=== PATIENT | male | born 1930 | race Caucasian/White ===

== ENCOUNTER 2016-09-04 10:31 | Inpatient (IN) | payer MEDICARE ==
--- NOTE | 2016-09-04 10:58 | Emergency Department Record ---
History of Present Illness - General Chief complaint: Weakness Stated complaint: WEAKNESS/FALL Time Seen by Provider: 09/04/16 10:47 Source: Patient, Family Mode of Arrival: EMS Limitations: No limitations - History of Present Illness Initial comments: pt has fallen twice in last few days. pt c/o back pain. pt is unsure why he fell. he did start a new medication recently MD Complaint: Generalized weakness Onset/Timin -: Days(s) Severity: Mild Severity scale (1-10): 2 Quality: Aching Consistency: Constant Improves with: None Worsens with: None Associated Symptoms: Denies other symptoms - [place] Coma Scale Eye Response: (4) Open spontaneously Motor Response: (6) Obeys commands Verbal Response: (5) Oriented [place] Total: 15 - Symptoms of Stroke Symptoms of stroke: Muscle Weakness - Related Data Home Medications Medication Instructions Recorded Confirmed Last Taken Bupropion HCl [Bupropion HCl] 100 mg PO DAILY 09/04/16 09/04/16 Unknown Sertraline HCl [Zoloft] 50 mg PO DAILY 09/04/16 09/04/16 Unknown Sertraline HCl [Zoloft] 100 mg PO DAILY 09/04/16 09/04/16 Unknown Allergies Allergy/AdvReac Type Severity Reaction Status Date / Time No Known Drug Allergies Allergy Unverified 03/14/16 12:07 Travel Screening - Travel/Exposure Within Last 30 Days Have you traveled within the last 30 days?: No Review of Systems Reviewed: No additional complaints except as noted below Constitutional: Reports: As per HPI. Denies: Chills, Fever, Malaise, Night sweats, Weakness, Weight change Eyes: Reports: As per HPI. Denies: Eye discharge, Eye pain, Photophobia, Vision change ENT: Reports: As per HPI. Denies: Congestion, Dental pain, Ear pain, Epistaxis , Hearing loss, Throat pain Respiratory: Reports: As per HPI. Denies: Cough, Dyspnea, Hemoptysis, Stridor, Wheezes Cardiovascular: Reports: As per HPI. Denies: Arrhythmia, Chest pain, Dyspnea on exertion, Edema, Murmurs, Orthopnea, Palpitations, Paroxysmal nocturnal dyspnea, Rheumatic Fever, Syncope Endocrine: Reports: As per HPI. Denies: Fatigue, Heat or cold intolerance, Polydipsia, Polyuria Gastrointestinal: Reports: As per HPI. Denies: Abdominal pain, Constipation, Diarrhea, Hematemesis, Hematochezia, Melena, Nausea, Vomiting Genitourinary: Reports: As per HPI. Denies: Dysuria, Frequency, Hematuria, Incontinence, Retention, Testicular pain, Testicular mass, Urgency Musculoskeletal: Reports: As per HPI. Denies: Arthralgia, Back pain, Gout, Joint swelling, Myalgia, Neck pain Skin: Reports: As per HPI. Denies: Bruising, Change in color, Change in hair/ nails, Lesions, Pruritus, Rash Neurological: Reports: As per HPI. Denies: Abnormal gait, Confusion, Headache, Numbness, Paresthesias, Seizure, Tingling, Tremors, Vertigo, Weakness Psychiatric: Reports: As per HPI. Denies: Anxiety, Auditory hallucinations, Depression, Homicidal thoughts, Suicidal thoughts, Visual hallucinations Hematological/Lymphatic: Reports: As per HPI. Denies: Anemia, Blood Clots, Easy bleeding, Easy bruising, Swollen glands Past Medical History - SOCIAL HISTORY Smoking Status: Never smoker Alcohol Use: None Drug Use: None - RESPIRATORY Hx Respiratory Disorders: No - CARDIOVASCULAR Hx Cardio Disorders: Yes Hx Hypertension: Yes - NEURO Hx Neuro Disorders: Yes Hx Seizures: Yes - GI Hx GI Disorders: No - Hx Genitourinary Disorders: Yes Hx Bladder Problem: Yes Hx Prostate Problems: Yes Hx Renal Disease: Yes Comment:: Kidney removed, bladder CA - ENDOCRINE Hx Endocrine Disorders: No Hx Diabetes: No Hx Thyroid Disease: No - MUSCULOSKELETAL Hx Musculoskeletal Disorders: Yes Hx Arthritis: Yes - PSYCH Hx Psych Problems: Yes Hx Anxiety: Yes Hx Depression: Yes - HEMATOLOGY/ONCOLOGY Hx Hematology/Oncology Disorders: Yes Hx Cancer: Yes (Bladder) Hx Chemotherapy: Yes Hx Radiation Therapy: No Family Medical History Any Significant Family History?: Yes Hx Cancer: Mother Physical Exam - General General Appearance: Alert, Oriented x3, Cooperative, Mild distress - Head Head exam: Normal inspection - Eye Eye exam: Normal appearance, PERRL, EOMI Pupils: Normal accommodation - ENT ENT exam: Normal exam, Mucous membranes moist, Normal external ear exam, Normal orophraynx, TM's normal bilaterally Ear exam: Normal external inspection. negative: External canal tenderness Nasal Exam: Normal inspection. negative: Discharge, Sinus tenderness Mouth exam: Normal external inspection, Tongue normal Teeth exam: Normal inspection. negative: Dental caries Throat exam: Normal inspection. negative: Tonsillar erythema, Tonsillar exudate - Neck Neck exam: Normal inspection, Full ROM. negative: Tenderness - Respiratory Respiratory exam: Normal lung sounds bilaterally. negative: Respiratory distress - Cardiovascular Cardiovascular Exam: Regular rate, Normal rhythm, Normal heart sounds - GI/Abdominal GI/Abdominal exam: Soft, Normal bowel sounds. negative: Tenderness - Rectal Rectal exam: Deferred - exam: Deferred - Extremities Extremities exam: Normal inspection, Full ROM, Normal capillary refill. negative: Tenderness - Back Back exam: Reports: Paraspinal tenderness, Tenderness. Denies: Normal inspection, Full ROM, Muscle spasm, Rash noted - Neurological Neurological exam: Alert, CN II-XII intact, Normal gait, Oriented X3 - Psychiatric Psychiatric exam: Normal affect, Normal mood - Skin Skin exam: Dry, Intact, Normal color, Warm Course Vital Signs 09/04/16 10:35 Temperature 99.1 F Pulse Rate 88 Respiratory 18 Rate Blood Pressure 144/67 Pulse Ox 96 - Reevaluation(s) Reevaluation #1: 09/04/16 16:23 pt is difficult to get up even w 2 man assist and needs 2 people to hold while walking. fears more falls and fears taking him home. Medical Decision Making - Lab Data Result diagrams: 09/04/16 10:30 09/04/16 10:30 Disposition Disposition: Admit Clinical Impression: Unable to ambulate, Recurrent falls Decision to Admit: Admit from ER Decision to Admit Date: 09/04/16 Decision to Admit Time: 16:27 Forms: Patient Portal Access
[2016-09-04 11:13] LABS: BASO % 0.1 % (0-6); EOS % 2.2 % (0-6); GRAN % 75.1 % (47-80); HEMATOCRIT 37.2 % (42.0-52.0); HEMOGLOBIN 12.2 gm/dl (14.0-18.0); LYMPH % 15.1 % (16-45); MEAN CORPUSCULAR HEMOGLOBIN 29.1 pg (27-33); MEAN CORPUSCULAR HGB CONC 32.8 g/dl (32-36); MEAN PLATELET VOLUME 9.2 fl (7.4-10.4); MONO % 7.5 % (0-9); PLATELET COUNT 283 K/uL (130-400); RED BLOOD COUNT 4.18 M/uL (4.40-5.70); RED CELL DISTRIBUTION WIDTH 15.3 % (11.5-14.5); WHITE BLOOD COUNT W/O DIFF 7.6 K/uL (4.2-12.2)
[2016-09-04 11:25] LABS: ANION GAP 13.5 (7-16); CARBON DIOXIDE 24.5 mmol/L (22-30); CREATININE 1.4 mg/dL (0.66-1.25)
[2016-09-04] MEDS ORDERED: 0.9 % SODIUM CHLORIDE 1,000 ML BAG IV ONE (11:59)
[2016-09-04 14:07] LABS: URINE APPEARANCE CLEAR; URINE BILIRUBIN NEGATIVE (NEGATIVE); URINE BLOOD LARGE (NEGATIVE); URINE COLOR YELLOW; URINE GLUCOSE (UA) NEGATIVE (NEGATIVE); URINE KETONE NEGATIVE (NEGATIVE); URINE LEUKOCYTE ESTERASE NEGATIVE (NEGATIVE); URINE NITRITE NEGATIVE (NEGATIVE); URINE PROTEIN NEGATIVE (NEGATIVE); URINE UROBILINOGEN 0.2 E.U./dL (0.20 - 1.00)
[2016-09-04 14:13] LABS: URINE BACTERIA NONE SEEN; URINE EPITHELIAL CELLS NONE SEEN (FEW)
[2016-09-04] MEDS: ACETAMINOPHEN 500 MG TABLET PO PRN (18:49)
[2016-09-04] MEDS ORDERED: MIDODRINE HCL 10 MG PO SCH (22:00)
--- NOTE | 2016-09-05 08:14 | CT SCAN REPORT ---
EXAM: EMERGENCY HEAD CT WITHOUT CONTRAST HISTORY: UNWITNESSED FALL PER , HAS DEMENTIA, SHAKING. TECHNIQUE: Axial CT scan of the head was performed without IV contrast. Comparison: Head CT 12/23/14. Encounter: Initial. Hand dominance: Right. FINDINGS: No definite acute intracranial hemorrhage is identified. No focal mass effect or midline shift apparent. Some generalized atrophy as before with chronic appearing deep white matter changes, nonspecific, but likely representing some chronic small vessel deep white matter ischemic disease. No definite acute infarct or intracranial mass lesion is seen. No depressed calvarial fracture is evident. IMPRESSION: 1. GENERALIZED ATROPHY WITH CHRONIC APPEARING DEEP WHITE MATTER CHANGES. 2. NO DEFINITE ACUTE INTRACRANIAL HEMORRHAGE OR FOCAL MASS EFFECT IDENTIFIED. JOB NUMBER: [id number] [facility]
--- NOTE | 2016-09-05 08:39 | RADIOLOGY REPORT ---
EXAM: THORACIC SPINE HISTORY: UNWITNESSED FALL A WEEK AGO WITH BACK PAIN. TECHNIQUE: AP, transthoracic lateral, and swimmer's lateral views of the thoracic spine were obtained. Comparison: No prior thoracic spine series with which to compare. Comparison is made with the prior two view chest x-ray including a lateral view dated . FINDINGS: Diffuse osteopenia consistent with osteoporosis. Mild thoracic dextroscoliosis. Vertebroplasty involving L1 and L2, also present previously. Mild compression of a mid thoracic vertebra also appears unchanged from before. No definite acute thoracic fracture identified. Some mild apparent deformity of the manubrium of the sternum is presumably chronic in nature, not well seen on the prior lateral due to difference in positioning. Correlation with point tenderness suggested. Approximately 2.5 cm round nodule/mass left mid lung was present previously as well appearing essentially unchanged and recommend correlation with prior work-up. IMPRESSION: 1. OSTEOPOROSIS. 2. MILD THORACIC DEXTROSCOLIOSIS. 3. MILD CHRONIC COMPRESSION OF A MID THORACIC VERTEBRA ALSO PRESENT PREVIOUSLY. 4. POSTOP VERTEBROPLASTY IN L1 AND L2 BEFORE. 5. APPROXIMATELY 2.5 CM NODULE/MASS LEFT MID LUNG BEFORE. 6. MILD DEFORMITY IN THE MANUBRIUM OF THE STERNUM IS PRESUMABLY CHRONIC ALTHOUGH CORRELATION WITH POINT TENDERNESS SUGGESTED. JOB NUMBER: [id number] [facility]
--- NOTE | 2016-09-05 08:43 | RADIOLOGY REPORT ---
EXAM: LUMBAR SPINE HISTORY: UNWITNESSED FALL A WEEK AGO WITH LOW BACK PAIN. TECHNIQUE: AP and lateral views of the lumbar spine were obtained. Comparison: Lumbar spine series 10/29/13. Encounter: Initial. FINDINGS: Diffuse osteopenia consistent with osteoporosis. Postop changes fairly diffusely on the left again evident. Postop vertebroplasty at L1 and L2 as before. Some progressive compression of the body of L3 compared to the prior study. Chronic compression of L4. Degenerative disk disease at the L4- L5 interspace. IMPRESSION: 1. MILD PROGRESSION IN COMPRESSION OF THE BODY OF L3 COMPARED WITH 10/29/13. 2. CHRONIC COMPRESSION OF L4 BEFORE. 3. VERTEBROPLASTY AT L1 AND L2 BEFORE. 4. DEGENERATIVE DISK DISEASE AT THE L4-L5 INTERSPACE AGAIN EVIDENT. JOB NUMBER: [id number] [facility]
--- NOTE | 2016-09-05 08:46 | History & Physical ---
History of Present Illness - Date of Service Date of Service for History & Physical: 09/05/16 - History of Present Illness Admitting Diagnosis: unable to ambulate, frequent falls History of Present Illness: Ariel Wray is an 85 y/o male with history of unprovoked falling x 2 in the last few days. Patient does report has started a new medication recently. C/O back pain upon arrival to ER. Has been unable to ambulate well at home and has great fear of falling Travel Screening - Travel/Exposure Within Last 30 Days Have you traveled within the last 30 days?: No - Travel/Exposure Within Last Year Have you traveled outside the [place] in the last year?: No - Additonal Travel Details Have you been exposed to anyone with a communicable illness?: No - Travel Symptoms Symptom Screening: None Review of Systems Reviewed: No additional complaints except as noted below Constitutional: Reports: As per HPI. Denies: Chills, Fever, Malaise, Night sweats, Weakness, Weight change Eyes: Reports: As per HPI. Denies: Eye discharge, Eye pain, Photophobia, Vision change ENT: Reports: As per HPI. Denies: Congestion, Dental pain, Ear pain, Epistaxis , Hearing loss, Throat pain Respiratory: Reports: As per HPI. Denies: Cough, Dyspnea, Hemoptysis, Stridor, Wheezes Cardiovascular: Reports: As per HPI. Denies: Arrhythmia, Chest pain, Dyspnea on exertion, Edema, Murmurs, Orthopnea, Palpitations, Paroxysmal nocturnal dyspnea, Rheumatic Fever, Syncope Endocrine: Reports: As per HPI. Denies: Fatigue, Heat or cold intolerance, Polydipsia, Polyuria Gastrointestinal: Reports: As per HPI. Denies: Abdominal pain, Constipation, Diarrhea, Hematemesis, Hematochezia, Melena, Nausea, Vomiting Genitourinary: Reports: As per HPI. Denies: Dysuria, Frequency, Hematuria, Incontinence, Retention, Testicular pain, Testicular mass, Urgency Musculoskeletal: Reports: As per HPI. Denies: Arthralgia, Back pain, Gout, Joint swelling, Myalgia, Neck pain Skin: Reports: As per HPI. Denies: Bruising, Change in color, Change in hair/ nails, Lesions, Pruritus, Rash Neurological: Reports: As per HPI. Denies: Abnormal gait, Confusion, Headache, Numbness, Paresthesias, Seizure, Tingling, Tremors, Vertigo, Weakness Psychiatric: Reports: As per HPI. Denies: Anxiety, Auditory hallucinations, Depression, Homicidal thoughts, Suicidal thoughts, Visual hallucinations Hematological/Lymphatic: Reports: As per HPI. Denies: Anemia, Blood Clots, Easy bleeding, Easy bruising, Swollen glands Past Medical History - SOCIAL HISTORY Smoking Status: Former smoker Alcohol Use: Rare Drug Use: None - RESPIRATORY Hx Respiratory Disorders: No - CARDIOVASCULAR Hx Cardio Disorders: Yes Hx Hypertension: Yes - NEURO Hx Neuro Disorders: Yes Hx Seizures: Yes - GI Hx GI Disorders: No - Hx Genitourinary Disorders: Yes Hx Bladder Problem: Yes Hx Prostate Problems: Yes Hx Renal Disease: Yes Comment:: Kidney removed, bladder CA - ENDOCRINE Hx Endocrine Disorders: No Hx Diabetes: No Hx Thyroid Disease: No - MUSCULOSKELETAL Hx Musculoskeletal Disorders: Yes Hx Arthritis: Yes - PSYCH Hx Psych Problems: Yes Hx Anxiety: Yes Hx Depression: Yes - HEMATOLOGY/ONCOLOGY Hx Hematology/Oncology Disorders: Yes Hx Cancer: Yes (Bladder) Hx Chemotherapy: Yes Hx Radiation Therapy: No Family Medical History Any Significant Family History?: Yes Hx Cancer: Mother H&P Meds/Allergies - Allergies Allergies: Allergies Allergy/AdvReac Type Severity Reaction Status Date / Time No Known Drug Allergies Allergy Unverified 03/14/16 12:07 - Home Medications Home Medications Medication Instructions Recorded Confirmed Last Taken Bupropion HCl [Bupropion HCl] 100 mg PO DAILY 09/04/16 09/04/16 Unknown Sertraline HCl [Zoloft] 50 mg PO DAILY 09/04/16 09/04/16 Unknown - Active Medications Active Medications: Current Medications Acetaminophen (Tylenol 500mg Tab) 1,000 mg PO Q6H PRN PRN Reason: PAIN/TEMP Last Admin: 09/04/16 18:49 Dose: 1,000 mg Patient Own Med: (Bupropion 100 Mg) 1 each PO DAILY [facility] Patient Own Med: (Midodrine 10 Mg) 1 each PO TID [facility] Sertraline HCl (Zoloft) 100 mg PO DAILY [facility] Physical Exam - Vital Signs Vital Signs: Vital Signs - Last 24 Hrs Temp Pulse Pulse Resp BP BP BP 09/05/16 08:26 98.3 F 89 20 143/78 09/05/16 01:44 98.7 F 84 18 134/69 09/04/16 20:12 20 0220/17 17:47 99 H 16 09/04/16 17:22 98.8 F 99 H 18 159/96 09/04/16 17:06 98.6 F 86 20 155/94 Pulse Ox 09/05/16 08:26 98 09/05/16 01:44 95 09/04/16 20:12 09/04/16 17:47 09/04/16 17:22 97 09/04/16 17:06 98 - General General Appearance: Alert, Oriented x3, Cooperative, Mild distress Limitations: No limitations - Head Head exam: Normal inspection - Eye Eye exam: Normal appearance, PERRL, EOMI Pupils: Normal accommodation - ENT ENT exam: Normal exam, Mucous membranes moist, Normal external ear exam, Normal orophraynx, TM's normal bilaterally Ear exam: Normal external inspection. negative: External canal tenderness Nasal Exam: Normal inspection. negative: Discharge, Sinus tenderness Mouth exam: Normal external inspection, Tongue normal Teeth exam: Normal inspection. negative: Dental caries Throat exam: Normal inspection. negative: Tonsillar erythema, Tonsillar exudate - Neck Neck exam: Normal inspection, Full ROM. negative: Tenderness - Respiratory Respiratory exam: Normal lung sounds bilaterally. negative: Respiratory distress - Cardiovascular Cardiovascular Exam: Regular rate, Normal rhythm, Normal heart sounds - GI/Abdominal GI/Abdominal exam: Soft, Normal bowel sounds. negative: Tenderness - Rectal Rectal exam: Deferred - exam: Deferred - Extremities Extremities exam: Normal inspection, Full ROM, Normal capillary refill. negative: Tenderness - Back Back exam: Reports: Paraspinal tenderness, Tenderness. Denies: Normal inspection, Full ROM, Muscle spasm, Rash noted - Neurological Neurological exam: Alert, CN II-XII intact, Normal gait, Oriented X3 - Psychiatric Psychiatric exam: Normal affect, Normal mood - Skin Skin exam: Dry, Intact, Normal color, Warm Results - Labs Result Diagrams: 09/04/16 10:30 09/04/16 10:30 VTE H&P Assessment - Risk for VTE Risk for VTE: Yes Risk Level: Moderate Risk Assessment Date: 09/05/16 Risk Assessment Time: 08:44 VTE Orders Placed or Will Be Placed: Yes Plan - Inpatient Certification Inpatient Certification: Admit to inpatient care: Based on my medical assessment, after consideration of patient's risk factors (age, co-morbidities and patient presenting symptoms and acuity), I expect that this patient will remain in the hospital greater than or equal to two midnights and that the services needed warrant inpatient care because: Patient Risk Factors: [unable to ambulate, advanced age, falls] Estimated length of stay: [48-72 hrs] The patient may reasonably be expected to be discharged or transferred to a hospital within 96 hours after admission to [facility]. Services needed: [staff assist for ADL, possibility for PT/OT for deconditioning ] Post hospital care (if known): [] I certify that my determination is in accordance with my understanding of Medicare requirements for reasonable and necessary inpatient services. 09/05/16 08:44 - Detailed Diagnosis and Plan (1) Blood in urine Current Visit: No Status: Acute Base Code: R31.9 - HEMATURIA, UNSPECIFIED Comment: 01/07/15- will need to follow up with urology as outpatient but will culture urine since nursing reported some repeated episodes of incontience today. (2) Frequent falls Current Visit: Yes Status: Acute Base Code: R29.6 - REPEATED FALLS (3) Unable to ambulate Current Visit: Yes Status: Acute Base Code: R26.2 - DIFFICULTY IN WALKING, NOT ELSEWHERE CLASSIFIED (4) HTN (hypertension) Current Visit: Yes Status: Acute Base Code: I10 - ESSENTIAL (PRIMARY) HYPERTENSION (5) DVT prophylaxis Current Visit: Yes Status: Acute Base Code: [id number] - (6) Full code status Current Visit: Yes Status: Acute Base Code: Z78.9 - OTHER SPECIFIED HEALTH STATUS
[2016-09-05] MEDS: ACETAMINOPHEN 500 MG TABLET PO PRN ×3 (10:25→21:52)
[2016-09-05] MEDS: SERTRALINE HCL 50 MG TABLET PO SCH (10:26)
[2016-09-05] MEDS: IBUPROFEN 200 MG TABLET PO PRN (15:05)
[2016-09-05] MEDS: BUPROPION 100 MG PO SCH (15:06)
[2016-09-05] MEDS: MIDODRINE 10 MG PO SCH ×3 (15:07→21:48)
--- NOTE | 2016-09-05 15:35 | Rehab Evaluation ---
Patient Information - Patient Information Diagnosis: inability to ambulate, frequent falls Ordered Treatment: PT Evaluate and Treat Status: Initial Evaluation History: Detail (The patient was presented to ED on 09/04/16 after falls, 2 in the past few days.) Past Medical/Surgical Hx: PAST MEDICAL/SURGICAL HISTORY Past Surgical History Back surgery X2, left kidney removed-lefthip replacement-right bladder surgery/prostate due to CA PMH - Respiratory Hx Respiratory Disorders No PMH - Cardiovascular Hx Cardiovascular Disorders Yes Hx Hypertension Yes PMH - Neuro Hx Neurological Disorders Yes Hx Seizures Yes PMH - GI Hx Gastrointestinal Disorders No PMH - Hx Genitourinary Disorders Yes Patient Hx Bladder Problem Yes Hx Prostate Problems Yes Hx Renal Disease Yes Comment: Kidney removed, bladder CA PMH - Endocrine Hx Endocrine Disorders No Hx Diabetes No Hx Thyroid Disease No PMH - Musculoskeletal Hx Musculoskeletal Disorders Yes Hx Arthritis Yes PMH - Psych Hx Psychiatric Problems Yes Hx Anxiety Yes Hx Depression Yes PMH - Hematology/Oncology Hx Hematology/Oncology Yes Disorders Hx Cancer Yes: Bladder Hx Chemotherapy Yes Hx Radiation Therapy No Premorbid Status: Detail (The patient per his report ambulated minimally with wheeled walker.) Social History: Detail (The patient lives in a one story home with wheeled walker minimally per his report. The patient's home has 3 steps at the enterance with one railing. The patient's bathroom is equipped with a shower stall with a grab bar and tub chair and a standard toilet. The patient has a wheeled walker, wheelchair, standard cane and 4 point cane. The patient has an aide who provides supervision for showering and completes housework .) Precautions: None given, Fall - Time With Patient Total Time Spent With Patient (Min): 30 Treatment Procedures: Detail (Initial Evaluation) Subjective Information - Subjective Information Per Patient (The patient complains of lower back pain with movement and LE weakness.) Objective Data - Pain Pain Present: Yes (Lower back pain) Pain Intensity: 10 Pain Scale Used: Numeric (1 - 10) - Mental Status Patient Orientation: Oriented x3, Person, Place (The patient knew the month but not the year.) - ROM Not within normal limits (minimal limitations were note in R shoulder abduction and flexion, all other R and L UE were WNL. The patient's LE AROM was WFL.) - Strength/Tone Not within normal limits (The patient's bilateral UE strength was generally 4+ to 5/5. The patient's LE strength was R hip flexors 2/5, L 3/5, bilaterally hip abductors 3/5, hip adductors 4-/5, knee musculature was 4 to 4+/5, ankle musculature 4+/5.) - Bed Mobility Needs Assist (The patient required moderate PA of 1 with supine to sit and moderate PA of 2 with scooting up in bed. The patient was able to scoot forward in a seated position.) - Transfers Needs Assist (The patient required moderate PA of 1 with sit to stand and CG of 1.) - Balance Balance Sitting: Poor (The patient required support of arms to maintain sitting balance while seated on bed.) Balance Standing: Poor (The patient stood with support of wheeled walker, the patient leaned back with his trunk and bilateral knees into the surface.) - Gait Detail (The patient stood to walker for 30 to 45 seconds. The patient refused to ambulate due to back pain and fatigue. The patient required CGof 1 to stand safely) Therapy Assessment - Therapy Assessment Detail (The patient exhibits decreased sitting and standing balance, decreased LE strength proximally greater then distally. The patient requires moderate assistance with all mobility and decreased ability to complete sustained activities. The patient would benefit from subacute rehabilitation to return to previous functional level, impove balance to decrease fall risk.) Problem List - Problem List Physical Therapy Problem List: Detail (1) Poor standing and sitting balance 2) Decreased LE strength 3) Assistance with bed mobility and transfers 4) Not ambulating 5) Lower back pain 6) decreased ability to complete prolonged physical activities.) Goals - Goals Physical Therapy Goals: 1) The patient will require minimal assist to contact gaurding with bed mobility. 2) The patient will require CG with sit to stand transfers. 3) Improve the patient's balance to Fair level in sitting and standing. 4) The patient will ambulate with wheeled walker with CG of 1 50 to 75 feet. 5) The patient will tolerate 30 minutes of physical activity with 1 to 2 rest periods. Prognosis - Prognosis Good (To improve mobility to supervision/ CG level.) Plan - Plan Physical Therapy Plan: PT daily M-F one to two times a day for transfer training , bed mobility, LE strengthening exercises, balance exercises and gait training.
[2016-09-06] MEDS: IBUPROFEN 200 MG TABLET PO PRN (06:26)
--- NOTE | 2016-09-06 07:41 | RADIOLOGY REPORT ---
EXAM: CHEST, TWO VIEWS HISTORY: RETIREMENT PLACEMENT, FORMER SMOKER. TECHNIQUE: AP upright and lateral views of the chest were obtained. Comparison: Two view chest 12/28/14. FINDINGS: The previously noted 2.5 cm nodule/mass left mid lung is again seen and again measures about 2.5 cm in maximum size on the frontal chest x-ray appearing unchanged from before. Recommend correlation with prior work-up. The heart size is normal. Somewhat lordotic positioning. No definite acute infiltrate seen and no pleural effusion evident. Prominent spurring in the spine. Vertebroplasty upper lumbar region as before. IMPRESSION: 1. STABLE 2.5 CM NODULE/MASS LEFT MID LUNG. 2. NO ACUTE INFILTRATE EVIDENT. 3. CHRONIC SKELETAL FINDINGS. JOB NUMBER: [id number] [facility]
--- NOTE | 2016-09-06 07:59 | CT SCAN REPORT ---
EXAM: CT OF THE ABDOMEN AND PELVIS WITHOUT CONTRAST HISTORY: HISTORY OF BLADDER CANCER. FLANK PAIN. HEMATURIA. TECHNIQUE: Axial CT scan of the abdomen and pelvis was performed without oral or IV contrast. Comparison: No prior abdomen or pelvic CT with which to compare. FINDINGS: The patient is postop right NATALYA which creates considerable artifact in the lower pelvis. The patient is also postop lumbar laminectomy at the L2 and L3 level with vertebroplasty's at L1 and L2. There is a compression fracture of the inferior end plate of L3 and superior end plate of L4. This was described further on the recent lumbar spine plain film series of 09/04/16 performed yesterday. The left kidney is not identified and is presumably surgically absent. No intrarenal calculi seen on the right. No hydronephrosis or hydroureter is seen with no definite right ureteral calculus or bladder calculus evident although the distal most aspect of the right ureter and bladder inferiorly is obscured by artifact related to the right NATALYA. No calcified gallstones are seen within the gallbladder. Evaluation of the bowel and viscera is very limited without oral or IV contrast. Given this limitation, no definite hepatic, splenic, adrenal, pancreatic, or right renal mass identified aside from a tiny exophytic low attenuation mass arising from the posterior aspect of the mid portion of the right kidney likely a tiny cyst. Small hiatal hernia. Coronary artery calcification. Mild diverticulosis left side of the colon with no diverticulitis evident. No free intraperitoneal air or free intraperitoneal fluid evident. Small periumbilical anterior abdominal wall hernia containing adipose tissue, but no bowel. IMPRESSION: 1. POSTOP LEFT NEPHRECTOMY. NO DEFINITE URINARY TRACT CALCULI OR HYDRONEPHROSIS EVIDENT. THE ETIOLOGY OF THE PATIENT'S HEMATURIA NOT CLEAR FROM THIS STUDY. IF CLINICALLY WARRANTED, FOLLOW-UP CT UROGRAPHY MIGHT BE USEFUL. 2. CORONARY ARTERY CALCIFICATION. 3. SMALL HIATAL HERNIA. 4. POSTOP LUMBAR LAMINECTOMY AT L2 AND L3 WITH VERTEBROPLASTY'S AT L1 AND L2 AND WITH MULTIPLE COMPRESSION FRACTURES IN THE LUMBAR SPINE. 5. POSTOP RIGHT NATALYA. 6. SMALL PERIUMBILICAL ANTERIOR ABDOMINAL WALL HERNIA CONTAINING ADIPOSE TISSUE , BUT NO BOWEL. JOB NUMBER: [id number] [facility]
--- NOTE | 2016-09-06 09:27 | History and Physical Report ---
DATE OF DICTATION: 09/05/2016 at 12:45 p.m. CHIEF COMPLAINT: Fell twice in the last few days. Complaining of low back pain. HISTORY OF PRESENT ILLNESS: The patient came into the emergency department after two falls with generalized weakness. He was evaluated by Dr. Birch with x -rays of this thoracic and lumbar spine and a CT scan of the head. The CT scan of the head was negative. The lumbar spine showed a compression fracture of L2 and L3 which appears new when compared to the old x-rays done at this hospital. He was admitted to the hospital for weakness and recurrent falls. He also has blood in the urine; microscopic hematuria. He does have a history of bladder cancer. PAST MEDICAL HISTORY: Bladder cancer diagnosed in about 1998. Dr. Jaeger and Dr. Bedoya have been following him. Dr. Jaeger recently retired. He has coronary artery disease, hypertension, seizure disorder, arthritis. PAST SURGICAL HISTORY: Back surgery times two. He had his left kidney removed. He had a left hip replacement, bladder surgery, prostate surgery due to cancer. It is unclear if it was bladder or prostate cancer. MEDICATIONS ON ADMISSION: Sertraline 50 mg q. daily, midodrine 10 mg t.i.d. to increase his blood pressure, Wellbutrin 100 mg daily. ALLERGIES: No known drug allergies. FAMILY/PSYCHOSOCIAL HISTORY: His mother had cancer. He was never a smoker. No alcohol or drug use. REVIEW OF SYSTEMS: HEENT: No upper respiratory congestion, cough, cold, or headache. Cardiovascular: No chest pain, palpitations, or arrhythmias. Respiratory: No cough, cold, or congestion. Gastrointestinal: No nausea, vomiting, diarrhea, black stools, or bloody stools. Genitourinary: No dysuria, hematuria, frequency, or burning on urination. However, he does have microscopic hematuria seen through the emergency room. Musculoskeletal: He has arthritis with chronic low back pain. However with the fall he has some compression fractures at L2 and L3. Neurologic: No cerebrovascular accident, paralysis, or paraesthesias. Endocrine: No diabetes or thyroid disease. Integument: No rash, ulcers, changing moles, or yellow skin. PHYSICAL EXAMINATION: General: Height is 5 feet, 6 inches. Weight is 175 pounds. Vital Signs: Temperature is 98.6, pulse is 86, blood pressure is 155/94, respiratory rate is 20, pulse oximetry is 98% on room air. HEENT: Pupils are equal, round, and reactive to light and accommodation. Extraocular muscles are intact. The throat is clear. The nose is clear. The tympanic membranes are lam. Neck: The neck is supple. No jugular venous distension. No hepatojugular reflex. No carotid bruit. The thyroid is smooth. Cardiovascular: Regular rate and rhythm without murmurs, clicks, rubs, or gallops. Respiratory: Clear to auscultation. Breath sounds are equal bilaterally. Abdomen: Soft and nontender. No hepatosplenomegaly. No masses. No tenderness. Bowel sounds are active. No bruit. Extremities: No pitting edema. No cyanosis. No clubbing. Full range of motion. Peripheral pulses are good. Breasts: Normal male breasts. Back: There is pain on palpation of the lumbar spine in the L2-L3 area and also in the low back area. Rectal and Genitalia Examination: Deferred. Neurological Examination: Cranial nerves II through XII are intact. No gross defect. Sensation is normal. Strength is normal. Deep tendon reflexes are equal bilaterally. Babinski is negative. Mental Status: Alert and oriented times three. IMPRESSIONS: 1. Compression fracture at L2 and L3, mild. 2. Weakness. 3. Bladder cancer. 4. Microscopic hematuria. PLAN: Chest x-ray, CT of the abdomen and pelvis to make sure he does not have any sort of identifiable cause for the hematuria. Physical therapy to get him up and start moving him. Pain control with Tylenol and Motrin. We will admit this patient as an inpatient based on my medical assessment after consideration of the patient's risk factors, age, comorbidities, and the patient's presenting symptoms. I expect this patient will remain in the hospital greater than or equal to two midnights, and that the service needed warrants inpatient care because of compression fracture of L2 and L3. Estimated length of stay is three days. The patient may reasonably expect to be discharged or transferred to a hospital within 96 hours after admission to [facility]. SERVICES NEEDED: Physical therapy to increase his ambulation. Pain control. Post hospital care. Possible rehabilitation. I certify that my determination is in accordance with my understanding of Medicare requirements for reasonable and necessary inpatient services. aWlly Lozada D.O. Date Time JOB NUMBER: [id number] [facility]
[2016-09-06] MEDS: SERTRALINE HCL 50 MG TABLET PO SCH (09:30)
[2016-09-06] MEDS: ACETAMINOPHEN 500 MG TABLET PO PRN (09:30)
[2016-09-06] MEDS: MIDODRINE 10 MG PO SCH ×3 (09:30→22:36)
[2016-09-06] MEDS: BUPROPION 100 MG PO SCH (09:31)
[2016-09-06] MEDS ORDERED: NYSTATIN 15 GM TUBE TOP PRN (14:21)
--- NOTE | 2016-09-06 14:41 | Rehab Evaluation ---
Patient Information - Patient Information Diagnosis: inability to ambulate, frequent falls Ordered Treatment: OT Evaluate and Treat Status: Initial Evaluation Surgery: No History: Detail (The patient was presented to ED on 09/04/16 after falls, 2 in the past few days.) Past Medical/Surgical Hx: PAST MEDICAL/SURGICAL HISTORY Past Surgical History Back surgery X2, left kidney removed-lefthip replacement-right bladder surgery/prostate due to CA PMH - Respiratory Hx Respiratory Disorders No PMH - Cardiovascular Hx Cardiovascular Disorders Yes Hx Hypertension Yes PMH - Neuro Hx Neurological Disorders Yes Hx Seizures Yes PMH - GI Hx Gastrointestinal Disorders No PMH - Hx Genitourinary Disorders Yes Patient Hx Bladder Problem Yes Hx Prostate Problems Yes Hx Renal Disease Yes Comment: Kidney removed, bladder CA PMH - Endocrine Hx Endocrine Disorders No Hx Diabetes No Hx Thyroid Disease No PMH - Musculoskeletal Hx Musculoskeletal Disorders Yes Hx Arthritis Yes PMH - Psych Hx Psychiatric Problems Yes Hx Anxiety Yes Hx Depression Yes PMH - Hematology/Oncology Hx Hematology/Oncology Yes Disorders Hx Cancer Yes: Bladder Hx Chemotherapy Yes Hx Radiation Therapy No Premorbid Status: Detail (Pt's reports they live together in a double wide mobile home with 2 steps and 1 handrailing at entrance. They have a walk in shower with a seat and 2 grab bars. They have 2 aides that assist with pt showering and dressing although he is able to wash self and perform simple dressing activities. He walks short distances with 2 wheeled walker.) Social History: Detail (The patient has a wheeled walker, wheelchair, standard cane and 4 point cane. The patient has an aide who provides supervision for showering and completes housework .) Precautions: None given, Fall - Time With Patient Total Time Spent With Patient (Min): 35 Treatment Procedures: Detail (OT eval moderate complexity) Subjective Information - Subjective Information Per Patient, Other (Per ) Objective Data - Pain Pain Present: Yes (Low back pain) - Mental Status Patient Orientation: Oriented x3 - Visual Perception Appears within normal limits for therapeutic activities (Pt wears glasses for reading) - ROM Not within normal limits ([place] shoulder AROM limited to approx. 90 degrees due to back pain. Remaining austin UE AROM WNL.) - Strength/Tone Not within normal limits ([place] shoulder MMT 4/5 due to back pain, remaining austin UE MMT 4+/5) - Coordination Appears within normal limits for therapeutic activities - Transfers Needs Assist (Min assist for sit to stand from toilet) - Balance Balance Sitting: Fair Balance Standing: Poor (Pt requires mod assist to maintain balance while pulling up briefs after toileting.) - Sensation Intact - Gait Detail (Pt amb approx. 10 feet with 2 wheeled walker and min assist to maintain balance.) - ADL's/IADL's Detail (Pt able to complete partial toileting hygiene and pull up briefs with assist to maintain balance. He is currently unable to complete dressing/ bathing due to back pain.) Therapy Assessment - Therapy Assessment Detail (Pt presents with significant limitations in mobility and ADLs due to decreased balance, endurance and back pain.) Problem List - Problem List Physical Therapy Problem List: Detail (1) Poor standing and sitting balance 2) Decreased LE strength 3) Assistance with bed mobility and transfers 4) Not ambulating 5) Lower back pain 6) decreased ability to complete prolonged physical activities.) Occupational Therapy Problem List: Detail (1. Decreased Ind with dressing 2. Decreased Ind with showering 3. Decreased balance and functional mobility needed for safe and Ind ADLs 4. Decreased endurance needed for safe and Ind ADLs.) Goals - Goals Physical Therapy Goals: 1) The patient will require minimal assist to contact gaurding with bed mobility. 2) The patient will require CG with sit to stand transfers. 3) Improve the patient's balance to Fair level in sitting and standing. 4) The patient will ambulate with wheeled walker with CG of 1 50 to 75 feet. 5) The patient will tolerate 30 minutes of physical activity with 1 to 2 rest periods. Occupational Therapy Goals: 1. Pt will be Ind with sit to stand to enable Ind with self care activities. 2. Pt will be Ind with dressing 3. Pt will be Ind with showering Prognosis - Prognosis Good Plan - Plan Physical Therapy Plan: PT daily M-F one to two times a day for transfer training , bed mobility, LE strengthening exercises, balance exercises and gait training. Occupational Therapy Plan: OT 2-4 days per week to address self cares, endurance , functional mobility and pain mgmt.
--- NOTE | 2016-09-06 18:42 | Physical Therapy Tx Note ---
Physical Therapy Tx Note - Treatment Note Tolerated: Good Total Time Spent With Patient: 30 Physical Therapy Tx Note: Detail (Patient up in chair upon arrival, present. Cooperative for therapy. Performed 10 reps each B: ankle pumps, seated SLR, hamstring isometrics, heel slides, LAQ. Sit/stand transfer to FWW w /min assist, ambulated out to hallway outside of room and returned to bedside chair (approx 55 feet total) w/CGA and VCs. VCs to pivot to align with chair, to hold armrests to lower self. Good control to assume sitting. Fatigued and somewhat SOB but recovered quickly. Left up in chair w/call light in reach, bedside table within reach. Nrsg notified.) Physical Therapy Problem List: Detail (1) Poor standing and sitting balance 2) Decreased LE strength 3) Assistance with bed mobility and transfers 4) Not ambulating 5) Lower back pain 6) decreased ability to complete prolonged physical activities.) Physical Therapy Goals: 1) The patient will require minimal assist to contact gaurding with bed mobility. 2) The patient will require CG with sit to stand transfers. 3) Improve the patient's balance to Fair level in sitting and standing. 4) The patient will ambulate with wheeled walker with CG of 1 50 to 75 feet. 5) The patient will tolerate 30 minutes of physical activity with 1 to 2 rest periods. Prognosis: Good Physical Therapy Plan: Anticipate transfer to [facility] tomorrow; will check in a.m. regarding transfer time and see patient if he doesn't leave before noon.
--- NOTE | 2016-09-07 08:07 | Discharge Note ---
Discharge Note - Date Date of Discharge Note: 09/07/16 Disposition: Inpatient Rehab Facility Condition: (1) Good Additional Instructions: transfer to [facility] for rehab Prescriptions: Ibuprofen [Motrin] 200 mg PO Q8H PRN #30 tablet PRN Reason: Analgesia Nystatin 1 apply TOP BID PRN #30 gm PRN Reason: Red area relief Sertraline HCl [Zoloft] 100 mg PO DAILY #30 tab Referrals: Magalie Meyer, N.P. [Primary Care Provider] - Forms: Patient Portal Access
[2016-09-07 08:20] LABS: HEMATOCRIT 36.3 % (42.0-52.0); HEMOGLOBIN 12.1 gm/dl (14.0-18.0)
[2016-09-07] MEDS: IBUPROFEN 200 MG TABLET PO PRN (09:37)
[2016-09-07] MEDS: SERTRALINE HCL 50 MG TABLET PO SCH (09:38)
[2016-09-07] MEDS: BUPROPION 100 MG PO SCH (09:38)
[2016-09-07] MEDS: MIDODRINE 10 MG PO SCH (09:41)
[2016-09-07 10:52] LABS: URINE APPEARANCE CLEAR; URINE BILIRUBIN NEGATIVE (NEGATIVE); URINE BLOOD LARGE (NEGATIVE); URINE COLOR YELLOW; URINE GLUCOSE (UA) NEGATIVE (NEGATIVE); URINE KETONE NEGATIVE (NEGATIVE); URINE LEUKOCYTE ESTERASE NEGATIVE (NEGATIVE); URINE NITRITE NEGATIVE (NEGATIVE); URINE PROTEIN NEGATIVE (NEGATIVE); URINE UROBILINOGEN 0.2 E.U./dL (0.20 - 1.00)
[2016-09-07 10:56] LABS: URINE BACTERIA NONE SEEN; URINE EPITHELIAL CELLS NONE SEEN (FEW); URINE WBC NONE SEEN (0-2/hpf)
--- NOTE | 2016-09-07 11:01 | Physical Therapy Tx Note ---
Physical Therapy Tx Note - Treatment Note Tolerated: Fair Total Time Spent With Patient: 10 Physical Therapy Tx Note: Detail (Pt asleep in bed upon arrival, awakened easily. Required moderate assist for bed mobility: scooting to edge of bed, pushing up to sit. Complained of feeling stiff, low back pain. Min assist for sit/stand transfer to FWW. Ambulated to bathroom w/FWW w/CGA, min assist to control descent onto commode. Left w/nrsg for bathing/dressing.) Physical Therapy Problem List: Detail (1) Poor standing and sitting balance 2) Decreased LE strength 3) Assistance with bed mobility and transfers 4) Not ambulating 5) Lower back pain 6) decreased ability to complete prolonged physical activities.) Physical Therapy Goals: 1) The patient will require minimal assist to contact gaurding with bed mobility. 2) The patient will require CG with sit to stand transfers. 3) Improve the patient's balance to Fair level in sitting and standing. 4) The patient will ambulate with wheeled walker with CG of 1 50 to 75 feet. 5) The patient will tolerate 30 minutes of physical activity with 1 to 2 rest periods. Prognosis: Good Physical Therapy Plan: Anticipate transfer to [facility] today; will check back this afternoon regarding transfer time and see patient if he is still here.
--- NOTE | 2016-09-07 12:44 | Discharge Summary ---
DATE OF ADMISSION: 09/04/16 DATE OF DISCHARGE: 09/07/16 DISCHARGE DIAGNOSIS: 1. COMPRESSION FRACTURE OF L3, MILD. WEIGHT BEARING AND AMBULATION TOLERATED. 2. WEAKNESS. 3. MICROSCOPIC HEMATURIA RESOLVING. 4. HISTORY OF BLADDER CANCER DIAGNOSED ABOUT 1998, BEING FOLLOWED BY DR. TENA AND HIS PARTNER DR. MAYFIELD. 5. RASH IN THE GROIN AND USING NYSTATIN. 6. CHRONIC BACK PAIN, OSTEOARTHRITIS. 7. HISTORY OF HYPOTENSION AND ON MIDODRINE 10 MG T.I.D. REASON FOR HOSPITALIZATION: Multiple falls, compression fracture of L3. HISTORY OF PRESENT ILLNESS: This 85-year-old male has fallen two times in the last few days, complaining of low back pain, he came to the Emergency Department , he was seen by Dr. Birch with x-rays of the thoracic and lumbar spine showing a compression of L3 that is worse than the previous x-ray compared since October of 2015. Also he has surgical treatment of L1 and L2 with a vertebroplasty performed. The patient also had microscopic hematuria. No signs of infection. He has a history of bladder cancer. SIGNIFICANT FINDINGS FROM EXAMINATION AND FROM TESTING: X-rays of his lumbar spine showing mild progression and compression of L3 as compared to 10/29/13. He has chronic compression of L4. Vertebroplasty of L1 and L2. Degenerative disk disease at the L4-L5 interspace. On his thoracic spine he has osteoporosis , mild thoracic dextroscoliosis, mild chronic compression of the mid thoracic vertebral also present previously. Postop vertebroplasty as stated before in L1 and L2. There is an approximately 2.5 cm nodule/mass in the left lung which was seen on the previous x-ray of 12/28/14. Mild deformity of the manubrium of the sternum is presumably chronic although correlation with point tenderness is suggested. He had no palpatory pain on palpation of the anterior chest wall. Head CT revealed generalized atrophy with chronic appearing deep white matter changes, no definitive acute intracranial hemorrhage or focal mass effect identified. CT of the abdomen and pelvis without contrast because he has only one kidney and he has renal insufficiency. This is a work-up for the microscopic hematuria. It showed postop left nephrectomy, no definitive urinary tract calculi or hydronephrosis evident. They did not come up with an etiology for the hematuria. They recommended possible CT urography. He also notes coronary artery calcifications, small hiatal hernia, postop right total hip replacement, small periumbilical anterior abdominal wall hernia containing adipose, but no bowel and previous postop changes and lumbar laminoplasty in L1 and L2. Chest x-ray revealed a stable 2.5 cm nodule/mass left lung. No acute infiltrate evident. Chronic skeletal findings. On the chest x-ray it looks pretty calcified likely granuloma and since it has been stable for the last two yeas it is most likely a benign process. LABORATORY: WBC was 7,600, hemoglobin was 12.2 on admission, we will check a repeat hemoglobin and hematocrit on the day of discharge. His BUN was 19, creatinine was 1.4, potassium was 4.0. UA showing RBC's too numerous to count, WBC's 3-5, no bacteria, specific gravity 1.005. A repeat UA will be done today on the day of discharge to see how much clearing and to see if the microscopic hematuria has resolved. THERAPY PROVIDED: The patient was given pain control with Motrin 200 mg every six hours and Tylenol 1,000 mg q six hours alternating. He also had physical and occupational therapy and patient gradually improved. He is doing much better walking with a one person stand-by. He has pain with getting up, but once he gets going he seems to be walking fairly well for about 20-30 steps. HOSPITAL COURSE: Improved. At this point he would benefit from rehab for further strengthening so he can tolerate being at home. CONDITION AT DISCHARGE: Stable and improved. PLAN: For outpatient urology consultation at [facility] in the [facility] on 09/12/[address] Mayfield who the urologist replacing Dr. Tena who retired and he is to be seen for his microscopic hematuria and history of bladder cancer. 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 DISCHARGE MEDICATIONS: Bupropion 100 mg q daily, Midodrine 10 mg t.i.d. for the history of hypotension he had in the past, Motrin 200 mg one q eight hours prn pain, Tylenol 1,000 mg q six hours prn pain, Sertraline 100 mg q daily, Nystatin cream b.i.d. to the groin area - use this twice a day until three days beyond when the groin rash dissipates or disappears. Wally Lozada D.O. Date & Time JOB NUMBER: [id number] [facility]
== END 2016-09-07 13:38 | DRG 544 ==
LOC: ER 10:31 → MEDSURG 17:00
PROVIDERS: ADMIT Family Medicine; ATTEND Emergency Medicine
DX: M48.56XA Collapsed vertebra, not elsewhere classified, lumbar region, initial encounter for fracture (principal); R53.1 Weakness; R31.9 Hematuria, unspecified; Z85.51 Personal history of malignant neoplasm of bladder; R21 Rash and other nonspecific skin eruption; M54.9 Dorsalgia, unspecified; G89.29 Other chronic pain; I95.9 Hypotension, unspecified
CPT/HCPCS: 70450; 71020; 72072; 72100; 74176; 80048; 81001; 85014; 85018; 85025; 97110; 97162; 97166; 97530; 99285; J7030

== ENCOUNTER 2016-11-09 13:52 | Day surgery (SDC) | payer MEDICARE ==
[~2016-11-09 13:52] MED LIST: CEFAZOLIN 1 Gram 50 ML IVPB ONE
[2016-11-09] MEDS ORDERED: PROPOFOL 10 MG/ML VIAL IV ONE (14:00)
[2016-11-09] MEDS ORDERED: FENTANYL PF 100MCG/2ML VIAL IV ONE (14:00)
[2016-11-09] MEDS ORDERED: MIDAZOLAM HCL 2MG/2ML VIAL IV ONE (14:00)
--- NOTE | 2016-11-10 17:30 | Operative Note ---
DATE OF SURGERY: 11/09/2016 PREOPERATIVE DIAGNOSIS: Gross hematuria, history of bladder and ureter cancer and hydronephrosis. POSTOPERATIVE DIAGNOSIS: Gross hematuria, history of bladder and ureter cancer and hydronephrosis. OPERATION: Cystoscopy, right retrograde pyelogram, bladder biopsy and fulguration, insertion of right ureteral stent. Anesthesia: Sedation. 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 He was recently developing gross hematuria while in rehabilitation for his spine fracture. Initial CT scan did not show any abnormality of the right kidney. However, followup renal ultrasound has demonstrated new right hydronephrosis. He presents today for further investigation and management. PROCEDURE: Preop informed consent was obtained. Antibiotics were given. Sedation was administered. The patient was brought to the operating room and placed in lithotomy position with genitalia prepped and draped sterilely. Cystoscopy was performed. The patient's foreskin is quite phimotic and unable to be retracted but I was able to negotiate the scope into the urethra. The anterior urethra appeared unremarkable. The prostate appears unremarkable as well. The bladder was entered and inspected systematically. There are multiple prior healed bladder biopsy sites and the left ureteral orifice is surgically absent. There was a small flat erythematous area at the posterior trigone which was biopsy with cold cup forceps and fulgurated for complete destruction and excellent hemostasis. Urine was sent off through the cystoscope for cytology analysis as well. Injection of contrast into the right ureter was performed under mobile C-arm fluoroscopic guidance. The distal several centimeters show significant luminal narrowing and then above that level the ureter is quite dilated and becomes somewhat tortuous near the UPJ. There is also hydronephrosis seen as the contrast migrated into the right kidney. Did not have a ureteroscope available at this facility and therefore I elected to place a stent to decompress the kidney. A guidewire was advanced into the right ureter and as very difficult to negotiate through the obstruction but eventually was successful and negotiated the wire into the right collecting system and over the wire a 26 cm 6 Wolof double J stent was passed and confirmed to be left in good position proximal and distally under fluoroscopy and direct vision. There was rapid movement of urine through the distal coil of the stent into the bladder at the end of the procedure. The bladder was then drained and scope removed. The patient was wakened and transferred to recovery in stable condition. PLAN: The patient will follow up in the office in the next week or so to review the bladder biopsy and urine cytology results. Depending on the results, we will need to consider doing a right ureteroscopy to further evaluate the long segment of narrowed ureter distally. Sulaiman Bedoya M.D. JEANETTE
== END 2016-11-09 17:15 | disposition home health service (06) ==
LOC: SUR 13:52
PROVIDERS: ATTEND Urology
DX: N30.01 Acute cystitis with hematuria (principal); Z90.5 Acquired absence of kidney; I10 Essential (primary) hypertension; Z85.51 Personal history of malignant neoplasm of bladder
CPT/HCPCS: 52332; 52224; 00910; 88305; 88342; 88112; 88341; 76000; C1769; J3010; J0690